=== PATIENT | male | born 1960 | race Caucasian/White ===

== ENCOUNTER → 2023-07-20 07:12 | Outpatient (REF) | payer BC, SELFPAY | LOC: HWRCS 07:12 | PROVIDERS: ATTENDING PHYSICIAN Internal Medicine Cardiovascular Disease; FAMILY PHYSICIAN Family Medicine | DX: R94.31 Abnormal electrocardiogram [ECG] [EKG] (principal); R06.09 Other forms of dyspnea | CPT/HCPCS: 93306 ==

== ENCOUNTER 2023-08-04 17:32 | Emergency (ER) | payer BC, SELFPAY ==
[2023-08-04 17:34] VITALS: BP 135/69
--- NOTE | 2023-08-04 18:43 | ED.GENMED ---
History of Present Illness
General
Chief Complaint: Skin Surface Trauma
Source: patient
Exam Limitations: none
Time Seen by Provider: 08/04/23 18:02
Nursing documentation reviewed up to this point in time: agreed with
Travel History
Have you had any contact with someone who has COVID-19?: No
Do you have any symptoms of coronavirus? Fever > 100 degrees, chills, cough, shortness of breath, sore throat, loss of taste or smell, muscle aches, or headache?: No
History of Present Illness
History of Present Illness:
63-year-old male with past medical history of previous colostomy secondary to Crohn's disease presenting to the emergency department today with concerns of a cut to his left arm that occurred just prior to arrival while working on a car with a piece
of metal. Unsure of his last tetanus shot was.
Past History
Past History
ED Past Medical History: Other
ED Past Surgical History: Bowel resection and Other
Social History
Tobacco: Non-smoker
Alcohol: None
Personal:
Living: with family
Review of Systems
Review of Systems
Allergies reviewed?: Yes
All Other Systems: ROS reviewed and negative except as documented in HPI and ROS
Phy Exam
Physical Exam
Physical Exam:
GENERAL: Alert , in no apparent distress
EYE: pupils equal and reactive
NECK: Supple, no significant adenopathy.
ENT: o/p clr, mmm.
CARDIAC: Regular rate and rhythm .
LUNGS: Clear breath sounds bilaterally, no acute respiratory distress, no wheezes/rales/rhonchi
ABDOMEN: Soft, without focal tenderness, no r/g, no cvat
NEUROLOGICAL: Alert and oriented, no focal neuro deficits
SKIN: Skin tear to left forearm 6 cm in total length semicircle in shape superficial warm and dry, skin intact.
MUSCULOSKELETAL: No edema, well perfused.
PSYCH: Normal and appropriate interaction.
Course
Vital Signs
Initial and Last Documented VS:
Initial Vital Signs
Temp Pulse Resp BP Pulse Ox
97.9 F 96 16 135/69 100
08/04/23 17:34 08/04/23 17:34 08/04/23 17:34 08/04/23 17:34 08/04/23 17:34
Last Documented Vital Signs
Temp Pulse Resp BP Pulse Ox
97.9 F 96 16 135/69 100
08/04/23 17:34 08/04/23 17:34 08/04/23 17:34 08/04/23 17:34 08/04/23 17:34
Procedures
Laceration Closure
Left forearm:
Status of Wound: clean
Size of Wound in cm: 6
Description of Wound Edges: other (Skin tear)
Preparation: cleaned with saline
Revision/Debridement: routine- no revision and irrigate-direct pressure
Wound exploration: explored to base- no FB and no tendon involvement
Type of Closure: single layer closure and other (6 Steri-Strips)
MDM/Problems Addressed
MDM/Problems Addressed:
63-year-old male presenting to the emergency department today with concerns of a skin tear occurring prior to arrival very clean in appearance no foreign body seen unsure of last tetanus shot was. Given an updated tetanus shot no specific risk
factors for infection. Otherwise closed with Steri-Strips return precautions given.
*Critical Care Note
Total Time (30-74mins, 75-104mins- exclusive of procedures): Not Applicable
ED Attending Note
-
Portions of this chart may have been created with voice recognition software.� Occasional wrong word or��sound alike� substitutions may have occurred due to the inherent limitations of voice recognition software.
Discharge Plan
Departure
Patient Disposition: Home (Routine Discharge)
Date of Disposition: 08/04/23
Time of Disposition: 18:45
Patient with high blood pressure during this ER visit?: No
Condition: Good
Covid-19: Not Applicable
Discharge Problem:
Skin tear of left upper extremity
Instructions: Wound Care ED
Prescriptions:
No Action
ciprofloxacin HCl 500 MG tablet
500 mg PO Q12
prednisone 2.5 MG tablet
7.5 mg PO DAILY
amoxicillin-pot clavulanate 1 TABLET tablet
1 tab PO Q12 Qty: 20 0RF
Referrals:
Cynthia Calix MD [Family Provider] -
Activity Restrictions/Additional Instructions:
You came to the emergency department today with concerns of a skin tear. This was closed with Steri-Strips. Please keep the area clean covered and return for any signs of worsening.
Interventions
Interventions:
*General Assessment Last Done: 08/04/23 17:34
*ED COVID-19 Vaccine History Last Done: 08/04/23 17:34
ED-Skin Assessment Last Done: 08/04/23 18:29
Discharge Date and Time
Print Language: [place] R[place]
[2023-08-04] MEDS: ADACEL 0.5 ML IM (19:03)
== END 2023-08-04 19:19 | disposition home or self-care (01) ==
LOC: EMR 17:32
PROVIDERS: EMERGENCY PHYSICIAN Emergency Medicine; FAMILY PHYSICIAN Family Medicine
DX: S41.112A Laceration without foreign body of left upper arm, initial encounter (principal); W26.8XXA Contact with other sharp object(s), not elsewhere classified, initial encounter; Y93.89 Activity, other specified; Y92.89 Other specified places as the place of occurrence of the external cause; Y99.0 Civilian activity done for income or pay; Z23 Encounter for immunization; K50.90 Crohn's disease, unspecified, without complications; K90.0 Celiac disease; K21.9 Gastro-esophageal reflux disease without esophagitis; D64.9 Anemia, unspecified; Z93.3 Colostomy status; Z98.0 Intestinal bypass and anastomosis status
CPT/HCPCS: 99282; 12002; 90471; 90715

== ENCOUNTER 2023-11-01 01:50 | Inpatient (IN) | payer BC, SELFPAY ==
[2023-10-31 20:28] VITALS: BP 130/63
[2023-10-31 20:51] LABS: Urine Albumin 2+ (Neg - Trace); Urine Bilirubin 1+ (Negative); Urine Character Bloody (Clear); Urine Color Red; Urine Glucose Negative (Negative); Urine Ketone Trace (Negative); Urine Leukocyte 1+ (Negative); Urine Nitrite Negative (Negative); Urine Occult Blood 4+ (Negative); Urine Urobilinogen Negative (Neg - 1+)
[2023-10-31 21:04] LABS: Blood Urea Nitrogen 22 mg/dl (9-20); Calcium 8.9 mg/dl (8.4-10.2); Carbon Dioxide 25 mmol/L (22-30); Chloride 103 mmol/L (98-107); Glucose 97 mg/dl (70-99); Potassium 4.3 mmol/L (3.5-5.1); Sodium 137 mmol/L (135-145); eGFR > 60.00
[2023-10-31 21:25] LABS: % Basophils 0.3 % (0-2); % Eosinophils 0.3 % (0-6); % Immature Granulocytes 0.7 % (0-0.5); % Lymphocytes 5.1 % (20.5-51.1); % Monocytes 5.3 % (1.7-9.3); % Neutrophils 88.3 % (42.2-75.2); Absolute Basophils 0.1 10^3/uL (0-0.2); Absolute Eosinophils 0.1 10^3/uL (0-0.7); Absolute Immature Granulocytes 0.1 10^3/uL (0-0.05); Absolute Lymphocytes 0.9 10^3/uL (1.2-3.4); Absolute Neutrophils 16.4 10^3/uL (1.4-6.5); Hemoglobin 7.7 g/dL (13.0-18.0); Mean Corp Hgb Conc. 28.5 g/dL (33.0-37.0); Mean Corpuscular Hgb 20.5 pg (27.0-31.0); Mean Platelet Volume 9.6 fL (7.4-10.4); Nucleated Red Blood Cells % 0 % (-); Platelet Count 684 10^3/uL (130-400); Red Blood Cell Count 3.75 10^6/uL (4.70-6.10); Red Cell Dist. Width 24.8 % (11.5-14.5); White Blood Cell Count 18.6 10^3/uL (4.8-10.8)
[2023-10-31 22:06] LABS: Urine Bacteria Few (Negative); Urine Red Blood Cell >100 /HPF (0-2); Urine White Cell 16-20 /HPF (0-5)
[2023-10-31 22:25] VITALS: BP 122/63; BMI 26.6
--- NOTE | 2023-10-31 22:40 | ED.GENMED ---
History of Present Illness
General
Chief Complaint: Male Genito-Urinary Symptoms
Source: patient and family
Exam Limitations: none
Time Seen by Provider: 10/31/23 22:25
Nursing documentation reviewed up to this point in time: agreed with
History of Present Illness
History of Present Illness:
63-year-old male history of Crohn's disease followed at [facility] status post multiple resections has an ileostomy, urinates normally, has normal bowel movements, recent COVID infection, has hematuria, urinary frequency, no trouble urinating chronic
back pain, thought was due to his Crohn's, no nausea or vomiting, 1 prior episode of hematuria, does not see a urologist, has chronic iron deficiency anemia gets iron infusions followed by hematology based on hemoglobin in the 8 range
Past History
Past History
ED Past Medical History: Other (Crohn's)
ED Past Surgical History: Bowel resection and Other
Social History
Tobacco: Non-smoker
Alcohol: None
Drug: None
Personal:
Living: with family
Employment: Retired
Review of Systems
Review of Systems
All Other Systems: Not applicable
Constitutional: Denies fever, fatigue or chills
EENT: Reports no symptoms
Respiratory: Reports no symptoms
Cardiac: Reports no symptoms
ABD/GI: Reports diarrhea (Chronic liquid stool was semisolid stool in the rectal); Denies abdominal pain or bloody stools
: Reports bleeding; Denies dysuria or difficulty voiding
Musculoskeletal: Reports back pain
Skin: Reports no symptoms
Neurological: Reports no symptoms
Phy Exam
Physical Exam
Physical Exam:
Physical Exam
General: Chronically ill-appearing male
Neck: Lips are slightly
Heart: Regular
Lungs: no acute respiratory distress.
Abdomen: Soft ileostomy with large amount of dark liquid
Neuro: alert and oriented. no focal neurological deficits
Skin: no rash
Psychiatric: well kept. interactive and cooperative
Extremities: no edema.
Course
Orders/Labs/Results
Orders:
Orders
10/31/23 20:37
Basic Metabolic Panel Urgent
Complete Blood Count/With Diff Urgent
Urinalysis Urgent
Date Specimen was Collected: 10/31/23
Time Specimen was Collected: 20:30
Urine Microscopic Urgent
Date Specimen was Collected: 10/31/23
Time Specimen was Collected: 20:30
Urine Culture Urgent
TANYA Source: U
Specimen Description:
Date Specimen was Collected: 10/31/23
Time Specimen was Collected: 20:30
Comment: ADD ON
10/31/23 22:36
Abdomen/Pelvis wo Contrast CT [CT Abd/pelvis Wo Iv Cont] Urgent
Comment:
Reason For Exam: hematuria
0.9% Sodium Chloride 1000 ml [Nss] 1,000 ml IV BOLUS
CefTRIAXone [Rocephin] 1,000 mg IV NOW STA
10/31/23 22:44
Add On- LAB Urgent
Tests Added?: urine culture
10/31/23 23:40
Sterile Water [Sterile Water For Injection] 10 ml .ROUTE .STK-MED ONE
Abnormal Lab Results
10/31/23
20:37
WBC 18.6 H 10^3/uL
(4.8-10.8)
RBC 3.75 L 10^6/uL
(4.70-6.10)
Hgb 7.7 L g/dL
(13.0-18.0)
Hct 27.0 L %
(39.0-52.0)
MCV 72.0 L fL
(80.0-94.0)
MCH 20.5 L pg
(27.0-31.0)
MCHC 28.5 L g/dL
(33.0-37.0)
RDW 24.8 H %
(11.5-14.5)
Plt Count 684 H 10^3/uL
(130-400)
Abs Immat Gran (auto) 0.1 H 10^3/uL
(0-0.05)
Absolute Neuts (auto) 16.4 H 10^3/uL
(1.4-6.5)
Absolute Lymphs (auto) 0.9 L 10^3/uL
(1.2-3.4)
Absolute Monos (auto) 1.0 H 10^3/uL
(0.1-0.6)
Immature Gran % 0.7 H %
(0-0.5)
Neutrophils % 88.3 H %
(42.2-75.2)
Lymphocytes % 5.1 L %
(20.5-51.1)
BUN 22 H mg/dl
(9-20)
Urine Ketones Trace A
(Negative)
Urine Occult Blood 4+ A
(Negative)
Urine Bilirubin 1+ A
(Negative)
Ur Leukocyte Esterase 1+ A
(Negative)
Urine RBC >100 A /HPF
(0-2)
Urine WBC 16-20 A /HPF
(0-5)
Urine Bacteria Few A
(Negative)
Urine Albumin 2+ A
(Neg - Trace)
10/31/23 20:37
10/31/23 20:37
Vital Signs
Initial and Last Documented VS:
Initial Vital Signs
Temp Pulse Resp BP Pulse Ox
97.8 F 84 24 130/63 100
10/31/23 20:28 10/31/23 20:28 10/31/23 20:28 10/31/23 20:28 10/31/23 20:28
Last Documented Vital Signs
Temp Pulse Resp BP Pulse Ox
98.7 F 81 16 122/63 100
10/31/23 22:25 10/31/23 22:25 10/31/23 22:25 10/31/23 22:25 10/31/23 22:25
MDM/Problems Addressed
Differential Diagnosis Includes:
UTI stone malignancy dehydration
MDM/Problems Addressed:
Hematuria
Chronic conditions affecting care:
Crohn's chronic anemia
Chronic conditions affecting care: Previous abdomnial surgery
Acute Exacerbation and/or Progression of Chronic Illness:
Crohn's chronic anemia
Acute Exacerbation and/or Progression of Chronic Illness: Previous abdomnial surgery
*Radiology
Radiology exam reviewed: radiology read reviewed
*Pulse Oximetry
Patient hypoxic: no
*Critical Care Note
Total Time (30-74mins, 75-104mins- exclusive of procedures): Not Applicable
Update Note
Update Note:
Update patient chronically appearing but nontoxic hemoglobin close to his normal range white count is up urinalysis noted culture pending to start antibiotics check CT scan to rule out obstruction,
CT report noted labs noted reviewed with patient and spouse, he has had chronic leukocytosis in the 13 range chronic anemia never known to have ureteral stones before, concerned that he may not pass these and could become septic although I do not
think he has any signs of sepsis at this point no fevers no rigors no nausea or vomiting really no pain will start on antibiotics and fluids follow closely have asked hospitalist to admit him, and urology to consult in the morning
ED Attending Note
-
Portions of this chart may have been created with voice recognition software.� Occasional wrong word or��sound alike� substitutions may have occurred due to the inherent limitations of voice recognition software.
Discharge Plan
Departure
Patient Disposition: Admit
Date of Disposition: 11/01/23
Time of Disposition: 00:21
Presentation/result/management discussed w/ accepting MD/DO: Hospitalist
Patient with high blood pressure during this ER visit?: No
Condition: Fair
Discharge Problem:
Hematuria, Crohn's disease, Calculus, ureteral
Prescriptions:
No Action
prednisone 5 mg Tablet
10 mg PO DAILY
ferrous sulfate 325 mg (65 mg iron) Tablet
325 mg PO BID
Stelara 45 mg/0.5 mL Syringe
45 mg SC Q4W
Patient Comments:
10/31/23: Patient states that he is overdue for his next dose.
Iron Infusion
1 dose Q6W
Referrals:
Cynthia Calix MD [Family Provider] -
Interventions
Interventions:
*Risk Screen - Suicide Last Done: 10/31/23 20:28
*General Assessment Last Done: 10/31/23 22:25
*Neglect/Abuse Screening Last Done: 10/31/23 20:28
*ED COVID-19 Vaccine History Last Done: 10/31/23 22:25
ED-Male Genitourinary Assessment Last Done: 10/31/23 23:55
Discharge Date and Time
Print Language: MACEDONIAN
[2023-10-31 22:48] LABS: Anisocytosis 3+; Hypochromasia 2+; Macrocytosis 2+; Normal RBC Morphology No; Ovalocytes 1+; Stomatocytes 2+
[2023-11-01] VITALS (13 sets, daily range): BP systolic 104–134; BP diastolic 54–72; BMI 20.9
[2023-11-01] MEDS: ROCEPHIN 1000 MG IV (00:18)
[2023-11-01] MEDS: NSS 1000 IV ×2 (00:32→04:36)
--- NOTE | 2023-11-01 01:31 | HPS.HSE ---
Family Physician
-
Family Physician: Cynthia Calix
Chief Complaint
-
Bloody urine
History of Present Illness
Patient is a 63y M with PMH significant for severe Crohn's disease who presents to ED complaining of blood in his urine. Patient states that he first noted bloody urine today. Urine yesterday was normal appearing. Patient states that he has
had L sided back pain / flank for the past 1-2 weeks. He notes that he has frequent back pain as part of his Crohn's disease and he did not think much of this discomfort. He denies any fevers / chills. No dysuria. No prior h/o kidney stones.
Patient has severe Crohn's disease with active fistulas. He is s/p permanent ileostomy.
Patient denies any new / increased symptoms in regards to his Crohn's disease. He is followed for this at [facility].
Medical History
Past Medical History
Past Medical History: Reports Other
Additional Past Medical History:
Crohn's Disease with Active Fistulas
Chronic Iron Deficiency Anemia
Past Surgical History: Reports Other
Additional Past Surgical History:
Bowel Resection with Ileostomy / Reversal
Bowel Resection with Permanent Ileostomy
Social History
Tobacco: Non-smoker
Alcohol: None
Drug: None
Personal:
Living: With Family
Family History
Family History: Other (Uncle: Colitis)
Allergies / Home Medications
Allergies reflects when Allergies were last updated in [employer].
Home Medications with original date entered in [employer]
Allergy/Medication List:
Allergies
Allergy/AdvReac Type Severity Reaction Status Date / Time
metronidazole Allergy Unknown Verified 10/31/23 20:29
Proton Pump Inhibitors Allergy Rash Verified 10/31/23 20:29
Home Medications
Iron Infusion 1 dose Q6W 10/31/23
ferrous sulfate 325 mg (65 mg iron) tablet 325 mg PO BID 10/31/23
prednisone 5 mg tablet 10 mg PO DAILY 10/31/23
ustekinumab 45 mg/0.5 mL subcutaneous syringe (Stelara) 45 mg SC Q4W 10/31/23
Review of Systems
-
History Source: Patient
A 12 point ROS was completed and negative except as noted: Yes
Constitutional: Denies Fever, Fatigue or Chills
Respiratory: Denies Cough or Trouble Breathing
Cardiac: Denies Chest Pain or Palpitations
Abdomen/GI: Reports Black Stools (chronically); Denies Abdominal Pain, Nausea or Vomiting
: Reports Flank Pain and Bleeding; Denies Dysuria or Frequency
Neurological: Denies Dizzy or Headache
Psych: Denies Depression or Anxiety
Physical Exam
Vital Signs
Vital Signs
Temp Pulse Resp BP Pulse Ox
98.7 F 80 16 110/59 100
10/31/23 22:25 11/01/23 00:41 10/31/23 22:25 11/01/23 00:41 11/01/23 00:41
Physical Exam
General: Other (Thin, chronically ill-appearing 63y M in no acute distress.)
HEENT: Moist mucous membranes and PERRLA
Respiratory: Clear; No Wheezes, Rales or Rhonchi
Cardiac: S1/S2 and Regular Rhythm; No Murmur
GI: Other (Large collection dressing / ostomy device over entire anterior abdomen with multiple fistulous areas and leakage of black, liquid stools. Mild abdominal wall induration at edges without tenderness / erythema.)
Genito-urinary: No costovertebral tender
Musculoskeletal: No Clubbing, No Cyanosis and No Edema
Neuro: AO x 3
Laboratory Results
-
10/31/23 20:37
10/31/23 20:37
Impression/Plan
-
A/P: Patient is a 63y M with PMH significant for Crohn's disease who presents to ED for evaluation of bloody urine.
Left Ureterolithiasis
- Admit for further evaluation and treatment.
- Tamsulosin, strain urine, IVFs, etc.
- Urology evaluation for additional recommendations / possible ureteroscopy.
- Empiric abx pending culture data.
- Multiple stones appreciated on CT. Patient denies any prior h/o kidney stones.
Crohn's Disease with Active Fistulas
- Multiple areas of abdominal wall fistulas on exam / CT.
- Abdominal wall induration concerning for associated cellulitis.
- Continue current med regimen for Crohn's (prednisone. Stelara q4 weeks).
- IV Zosyn for now for possible cellulitis / urinary infection / etc.
- Wound / ostomy consult for complicated ostomy / abdominal dressing.
Chronic Iron Deficiency / Blood Loss Anemia secondary to the above
- Hgb 7.7 at present without clear baseline.
- Patient is on chronic iron supplementation for chronic GI blood losses.
- Follow H&H and consider transfusion if needed.
- Patient declined to complete consent at present and would prefer to do so later only if transfusion is necessary.
- Continue iron supplementation.
Leukocytosis
Thrombocytosis
- At least partially reactive given associated thrombocytosis.
- Likely also due to chronic blood losses / marrow activity.
- Concern for active infection of the abdominal wall and / or tract.
- IV abx as noted above.
- Follow for changes in cell counts.
DVT Prophylaxis: SCDs
Code Status: Full
[2023-11-01] MEDS: ZOSYN 50 IV ×2 (04:36→09:55)
--- NOTE | 2023-11-01 05:04 | PTCARENOTE ---
Pt arrived to [facility] from ED at 02:55 on a stretcher and walked into the room to the bed. Full head to toe assessment completed. Ostomy present with multiple fistulas. Pt on RA and lying comfortably. Pt states they are pain free. Call carrero within
reach and bed locked in lowest position. Pt oriented to room.
[2023-11-01 06:27] LABS: Hematocrit 23.2 % (39.0-52.0); Hemoglobin 6.5 g/dL (13.0-18.0); Mean Corpuscular Hgb 20.2 pg (27.0-31.0); Platelet Count 514 10^3/uL (130-400); Red Blood Cell Count 3.22 10^6/uL (4.70-6.10); Red Cell Dist. Width 24.5 % (11.5-14.5); White Blood Cell Count 9.4 10^3/uL (4.8-10.8)
[2023-11-01 06:47] LABS: Blood Urea Nitrogen 19 mg/dl (9-20); Calcium 8.1 mg/dl (8.4-10.2); Carbon Dioxide 25 mmol/L (22-30); Chloride 106 mmol/L (98-107); Estimated Creatinine Clearance 53 ml/min; Glucose 73 mg/dl (70-99); Potassium 4.5 mmol/L (3.5-5.1); Sodium 139 mmol/L (135-145); eGFR > 60.00
[2023-11-01] MEDS: FLOMAX 0.4 MG PO (07:54)
[2023-11-01] MEDS: DELTASONE 10 MG PO (07:54)
[2023-11-01] MEDS: FEOSOL 325 MG PO (07:55)
[2023-11-01 08:11] LABS: Reticulocyte Count 6.2 % (0.4-2.8)
[2023-11-01 08:15] LABS: Iron 39 ug/dl (49-181); LDH 138 U/L (120-246)
[2023-11-01 08:26] LABS: Percent Saturation 20 % (20-50); Total Iron Binding Capacity 186 ug/dl (261-462)
[2023-11-01 09:32] LABS: Folate 9.2 ng/ml (2.76-20); Vitamin B12 648 pg/ml (239-931)
--- NOTE | 2023-11-01 10:02 | W.PN.HOSP.TC ---
Today's Communication/Plan
-
transfuse 2 units pRBC
apprec urology
d/c after blood
Assessment / Plan
Assessment / Plan
pt is a 63 year old male
Left Ureterolithiasis--hematuria resolved--apprec urology--f/u in office in 2 weeks--stop IVF--Tamsulosin, strain urine--Empiric abx pending culture data--Multiple stones appreciated on CT. Patient denies any prior h/o kidney stones.
Crohn's Disease with Active Fistulas--chronic--possible abdominal wall cellulitis--on zosyn--Continue current med regimen for Crohn's (prednisone. Stelara q4 weeks)--Wound/ostomy consult for complicated ostomy / abdominal dressing.
Chronic Iron Deficiency/acute Blood Loss Anemia from hematuria--receives iron as outpt--anemia studies do not show iron deficiency--pt agreeable to blood now--will transfuse 2 units pRBC--stop IVF
Leukocytosis/Thrombocytosis--At least partially reactive given associated thrombocytosis--Likely also due to chronic blood losses/marrow activity.
DVT Prophylaxis: SCDs
Code Status: Full
anticipate d/c home after blood
Anticipated Discharge: Today
Subjective/Interval History
-
Date of Service: November 01, 2023
pt now agreeable to consent for blood
Objective Data
-
Labs:
Laboratory Results
11/01/23
04:48
WBC 9.4
Hgb 6.5 L*
Hct 23.2 L
Plt Count 514 H D
Sodium 139
Potassium 4.5
Chloride 106
Carbon Dioxide 25
BUN 19
Creatinine 1.2
Glucose 73
Calcium 8.1 L
Vital Signs:
max temp for 24 hours
10/31/23
22:25
Temp 98.7 F
Vital Signs
Temp Pulse Resp BP Pulse Ox
98.4 F 79 14 126/64 100
11/01/23 07:00 11/01/23 07:00 11/01/23 07:00 11/01/23 07:00 11/01/23 07:00
I&O
10/31/23 11/01/23 11/02/23
06:59 06:59 06:59
Output Total 200 / 200
Balance -200 / -200
Review of Systems
-
All other systems: Reviewed and negative
Physical Exam
-
General: Appears Chronically Ill
HEENT: Normocephalic and Atraumatic; Negative Oxygen
Respiratory: Clear to Auscultation; Negative Wheezes or Rhonchi
Cardiac: Regular Rhythm and S1/S2; Negative Murmur
GI: Soft, Nontender, Nondistended, Normal Bowel Sounds and Ostomy (covers whole abdomen)
Musculoskeletal: No Clubbing, No Cyanosis and No Edema
Skin: Warm
Neuro: Awake
--- NOTE | 2023-11-01 10:11 | CM ---
Patient seen at bedside with physician. Patient states that he lives with his family in a 2 story home. Patient PCP is Dr. Bragg and he uses the [facility] on [address] in [place]. 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
Patient plan is for discharge home with no needs. Patient has no DME at home. Patient recently with COVID now testing negative per patient. Patient for transfusion today and then plans for discharge home. Patient states is on her way here
shortly. CM will continue to follow for discharge planning needs.
Plan; home with no needs; follow up with outpatient physician Dr. Welch
--- NOTE | 2023-11-01 10:29 | W.PN.URO.CBU ---
Today's Communication / Plan
-
Discussed the CT scan findings at length with the patient who has never had a kidney stone event previously
In the absence of fever, ongoing hematuria, renal colic, nausea or DELLA there is no indication for urgent intervention and patient is anxious to go home after blood transfusion for an outpatient trial of stone passage
He is aware that the presence of multiple left ureteral stones decreases the likelihood of spontaneous stone passage
He will follow with me in the office in the next week
Assessment / Plan
-
Left ureteral calculi with associated mild to moderate left hydroureteronephrosis
Left renal calculi
Transient gross hematuria: resolved
Chronic anemia: Hgb < 7.0 this AM
Longstanding complicated history of Crohn's disease with draining fistulae
Diagnosis
-
Date of Service: November 01, 2023
-
Patient Diagnosis:
Longstanding history of complicated Crohn's disease with permanent ileostomy and chronic draining small bowel fistulae managed with abdominal collection bag
Patient presented to the ER 10/31/23 due to the onset of gross painless hematuria: which has subsequently resolved
CT scan revealed multiple 5mm and smaller left distal ureteral stones with mild to moderate hydronephrosis and a large stone burden in the left kidney. No clear masses noted in the upper or lower tracts. No right upper tract stones
He had transient LLQ pain, which has resolved
---
Chronic anemia: Hgb < 7.0 this AM
Subjective
-
No flank pain
No nausea
No dysuria or gross hematuria
Objective
-
Vital Signs
Temp Pulse Resp BP Pulse Ox
98.4 F 79 14 126/64 100
11/01/23 07:00 11/01/23 07:00 11/01/23 07:00 11/01/23 07:00 11/01/23 07:00
Intake and Output
10/31/23 11/01/23 11/02/23
06:59 06:59 06:59
Output Total 200 / 200
Balance -200 / -200
Output:
Urine, Voided 200 / 200
Laboratory Results
11/01/23 04:48
11/01/23 04:48
CT scan images from 10/31/23 personally reviewed
Review of Systems
-
Constitutional: No Symptoms
Respiratory: No Symptoms
Cardiac: No Symptoms
Abdomen/GI: No Symptoms
: No Symptoms
Neurological: No Symptoms
Physical Exam
-
General - thin, no acute distress
Abdomen - soft, non-tender, abdominal collection bag in place, no left CVAT
Counseling
-
Cleared for outpatient trial of stone passage after blood transfusion
Discussed with Hospitalist
--- NOTE | 2023-11-01 11:25 | WOUNDNOTE ---
AASHISH RN NOTE: Patient admitted with hematuria, PMH of Crohn's disease, 2 bowel resections at [facility] with ileostomy x 16 yrs. Own supplies at bedside and independent with care. Asking for any recommendations in management, follows with an Ostomy
nurse as outpatient. Patient has multiple fistulas scattered over abdomen, draining bilious drainage. Ileostomy stoma pink, small tiny bud for liquid stool. Kaleigh skin on abdomen is in good shape despite leakage and having to change pouch daily.
Patient known to service, seen in 2012 by Peggy for same fistula management. Patient continues to manage on own with large [facility] fistula investigations manager, paste and clip. Using Tube top or girdle as extra support over appliance. Has appliance pre cut to
fit ileostomy and fistulas, watched patient change appliance and assisted as needed. Noticed some of the precut openings not over the right spot, willing to assist patient in measuring next appliance for better fit, if still here tomorrow. Sacrum is
intact and patient reports no other fistulas in rectal area. Recommend patient follow up with current ostomy nurse.
--- NOTE | 2023-11-01 16:19 | W.DCSUMMARY ---
Discharge Summary
Discharge Data
Date of Admission: 11/01/23
Date of Discharge: 11/01/23
-
Pending Results: Yes
Additional Pending Results:
urine culture
Hospital Course
Primary care physician : Cynthia Calix
Principal Discharge diagnosis : Left ureteral lithiasis with hematuria
Chronic Discharge diagnosis : Crohn's disease with active fistulas, chronic iron deficiency anemia due to acute blood loss anemia from hematuria, leukocytosis/thrombocytosis
Hospital Course : Patient is a 63-year-old male with severe Crohn's disease and known fistulas who presented to the emergency department complaining of blood in his urine. He noted bloody urine on the day of admission. He was complaining of
left-sided back and flank pain for the past 1 to 2 weeks. He did not really attribute this to anything as he has chronic pain from his Crohn's disease. He denied fevers, chills, dysuria. Patient was found to have a hemoglobin of 7.7 with multiple
renal stones on CAT scan. Patient was admitted.
Problem #1: Left ureteral lithiasis with hematuria. Patient was seen in consultation by urology. IV fluids were continued. Hematuria has resolved. Recommendations are for him to follow-up with urology as an outpatient for definitive stone
management. Urine culture was checked and is pending at this time. Patient was started on empiric Zosyn prior to discharge and converted to Augmentin to finish out a 5-day course. Urine culture results are pending at this time. He will follow-up
with Dr. Welch in the office.
Problem #2: All other medical issues. These include Crohn's disease with active fistulas, chronic iron deficiency anemia due to acute blood loss anemia from hematuria, leukocytosis/thrombocytosis. These medical issues were stable during his
hospitalization. Medications were continued as able. In regards to the acute blood loss anemia. With IV fluids his hemoglobin dropped from 7.7 on admission to 6.5. He is finally agreeable to blood transfusion which he declined to sign the
consent on admission. He was transfused 2 units of packed red blood cells. Since there was no further hematuria and no concern for any other bleeding. Posttransfusion hemoglobin was not checked. Patient also receives IV iron and was not iron
deficient. He receives these every 6 weeks. He just received his iron this past week.
Patient is stable for discharge home at this time. If there are any questions regarding this dictation or his hospital stay, please not hesitate to call. Our office number is [phone].
Important imaging findings :
CT SCAN ABDOMEN/PELVIS IMPRESSION:
Multiple calculi within the distal left ureter, and I count 8 separate calculi, the largest measuring 5 mm. Mild to moderate dilation more proximal left ureter, left renal pelvis, and calyces. There are also multiple calculi within the calyces of
the mid to lower left kidney.
No evidence for right sided urinary tract calculi.
Complex anatomy of the bowel with suggestion of fistulous tracts extending from the small bowel into the anterior abdominal wall. If further evaluation of bowel anatomy is desired, examination with oral contrast may be helpful.
No evidence for free intraperitoneal air.
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 Consider further evaluation with MRI of the pelvis without and with contrast. Ultimately, biopsy could be considered as well.
Small loculated pleural effusion in the posterolateral right lower hemithorax.
Discharge Plan
-
Patient Disposition: Home (Routine Discharge)
Discharge Diagnosis/Procedures: Left ureterolithiasis with hematuria, Crohn's disease with active fistulas, chronic iron deficiency anemia with acute blood loss anemia from hematuria, leukocytosis/thrombocytosis
Condition: Good
Diet: Other diet
Additional Diets: Crohn's diet that he uses at home
Activity: As tolerated
Driving Restrictions: As prior to admission
Bathing Restrictions: as prior to admission
Referrals:
Cynthia Calix MD [Family Provider] - in less than 1 week
Canelo Welch MD [Active] - in two weeks
Prescriptions:
New
tamsulosin 0.4 mg Capsule
0.4 mg PO DAILY Qty: 30 0RF
amoxicillin-pot clavulanate 500-125 mg tablet
1 tab PO BID Qty: 10 0RF
Continued
prednisone 5 mg Tablet
10 mg PO DAILY Qty: 0 0RF
ferrous sulfate 325 mg (65 mg iron) Tablet
325 mg PO BID Qty: 0 0RF
Stelara 45 mg/0.5 mL Syringe
45 mg SC Q4W Qty: 0 0RF
Patient Comments:
10/31/23: Patient states that he is overdue for his next dose.
Changed
Iron Infusion
1 dose IV Q6W Qty: 0 0RF
Discharge Orders:
Discharge Patient (As Directed); Ordered 11/01/23
Ordered By: Lexie Juarez
Discharge Date and Time
Discharge Date/Time: 11/01/23 16:05
Print Language: MOSOTHO
== END 2023-11-01 16:05 | disposition home or self-care (01) | DRG 694 ==
LOC: 2 SOUTH 01:50
PROVIDERS: Emergency Medicine; ADMITTING PHYSICIAN Hospitalist; ATTENDING PHYSICIAN Internal Medicine; CONSULT PHYSICIAN Specialist; EMERGENCY PHYSICIAN Emergency Medicine; FAMILY PHYSICIAN Family Medicine
PROC: 30233N1 Transfusion of Nonautologous Red Blood Cells into Peripheral Vein, Percutaneous Approach (ICD-10-PCS; 2023-11-01)
DX: N20.2 Calculus of kidney with calculus of ureter (principal); J90 Pleural effusion, not elsewhere classified; D62 Acute posthemorrhagic anemia; K50.913 Crohn's disease, unspecified, with fistula; D72.829 Elevated white blood cell count, unspecified; D75.839 Thrombocytosis, unspecified; R31.9 Hematuria, unspecified; R35.0 Frequency of micturition; Z79.52 Long term (current) use of systemic steroids; Z79.899 Other long term (current) drug therapy; Z93.2 Ileostomy status; Z90.49 Acquired absence of other specified parts of digestive tract; Z86.16 Personal history of COVID-19
CPT/HCPCS: 74176; 80048; 81003; 81015; 82607; 82728; 82746; 83540; 83550; 83615; 85025; 85027; 85045; 86850; 86900; 86901; 86920; 87086; 96361; 96374; 99285; P9016

== ENCOUNTER → 2024-03-16 07:43 | Outpatient (REF) | payer BC, SELFPAY | LOC: RAD 07:43 | PROVIDERS: ATTENDING PHYSICIAN Internal Medicine Gastroenterology; FAMILY PHYSICIAN Family Medicine; REFERRING PHYSICIAN Specialist | DX: K50.913 Crohn's disease, unspecified, with fistula (principal) | CPT/HCPCS: 74177; Q9967 ==

== ENCOUNTER 2024-05-24 20:22 | Inpatient (IN) | payer BC, SELFPAY ==
[2024-05-24 17:51] VITALS: BP 122/72
[2024-05-24 18:00] VITALS: BP 98/64
[2024-05-24 18:03] VITALS: BP 98/64; BMI 17.7
[2024-05-24] MEDS: NSS 1000 IV ×2 (18:09→21:30)
[2024-05-24 18:14] LABS: Hematocrit 34.5 % (39.0-52.0); Hemoglobin 9.6 g/dL (13.0-18.0); Mean Corp Hgb Conc. 27.8 g/dL (33.0-37.0); Mean Corpuscular Hgb 22.7 pg (27.0-31.0); Mean Corpuscular Volume 81.8 fL (80.0-94.0); Red Blood Cell Count 4.22 10^6/uL (4.70-6.10); Red Cell Dist. Width 22.6 % (11.5-14.5); White Blood Cell Count 20.3 10^3/uL (4.8-10.8)
[2024-05-24 18:22] LABS: ALT (SGPT) 24 U/L (0-50); AST (SGOT) 22 U/L (17-59); Alkaline Phosphatase 89 U/L (38-126); Blood Urea Nitrogen 30 mg/dl (9-20); Calcium 9.3 mg/dl (8.4-10.2); Carbon Dioxide 16 mmol/L (22-30); Chloride 100 mmol/L (98-107); Estimated Creatinine Clearance 16 ml/min; Glucose 125 mg/dl (70-99); Potassium 5.4 mmol/L (3.5-5.1); Sodium 133 mmol/L (135-145); Total Bilirubin 0.7 mg/dl (0.2-1.3); Total Protein 7.4 g/dl (6.3-8.2); eGFR 19.47
[2024-05-24 18:40] LABS: % Basophils 0.3 % (0-2); % Immature Granulocytes 0.7 % (0-0.5); % Lymphocytes 1.3 % (20.5-51.1); % Monocytes 2.1 % (1.7-9.3); % Neutrophils 95.6 % (42.2-75.2); Absolute Basophils 0.1 10^3/uL (0-0.2); Absolute Immature Granulocytes 0.2 10^3/uL (0-0.05); Absolute Lymphocytes 0.3 10^3/uL (1.2-3.4); Absolute Monocytes 0.4 10^3/uL (0.1-0.6); Absolute Neutrophils 19.4 10^3/uL (1.4-6.5); Mean Platelet Volume 9.7 fL (7.4-10.4); Nucleated Red Blood Cells % 0 % (-); Platelet Count 732 10^3/uL (130-400)
[2024-05-24 18:41] LABS: Anisocytosis 1+; Normal RBC Morphology No
[2024-05-24 18:42] LABS: Hypochromasia 2+
--- NOTE | 2024-05-24 18:46 | ED.GENMED ---
History of Present Illness
General
Chief Complaint: Abdominal Symptoms
Source: patient
Time Seen by Provider: 05/24/24 18:31
History of Present Illness
History of Present Illness:
This patient is a 64-year-old male with an extremely complicated history of Crohn's disease complicated by colostomy, fistulas, etc. Who presents emergency department because he thinks he is very dehydrated. He describes being 'blocked' last night
associated with vomiting. However, the obstruction resolved which she describes as 'it blows through', and he is now having very loose output from the ostomy without blood or black output. However, despite p.o. intake at home, he thinks he is very
dehydrated. He denies abdominal pain but describes 'bad leg cramps' which are very typical of when he becomes dehydrated. He denies nausea or vomiting today, fever, chills, abdominal pain, chest pain, shortness of breath, or other complaints
Past History
Past History
ED Past Medical History: Other (Crohn's)
ED Past Surgical History: Bowel resection and Other
Social History
Tobacco: Non-smoker
Alcohol: None
Drug: None
Personal:
Living: with family
Employment: Retired
Phy Exam
Physical Exam
Physical Exam:
GENERAL: Alert , in no apparent distress, thin
EYE: pupils equal and reactive, conjunctive a slightly pale
NECK: Supple, no significant adenopathy.
ENT: o/p clr, mm dry
CARDIAC: Regular rate and rhythm .
LUNGS: Clear breath sounds bilaterally, no acute respiratory distress, no wheezes/rales/rhonchi
ABDOMEN: Soft, colostomy noted with very loose output without blood, no tenderness
NEUROLOGICAL: Alert and oriented, no focal neuro deficits
SKIN: Warm and dry, skin intact.
MUSCULOSKELETAL: No edema, well perfused.
PSYCH: Normal and appropriate interaction.
Course
Orders/Labs/Results
Orders:
Orders
05/24/24 17:53
EKG [Electrocardiogram (*1)] Urgent
Reason for Study: Bradycardia / Tachycardia
05/24/24 17:54
EKG- Treatment ONCE
05/24/24 17:57
Complete Blood Count/With Diff Urgent
Comprehensive Metabolic Panel Urgent
05/24/24 18:03
0.9% Sodium Chloride 1000 ml [Nss] 1,000 ml IV BOLUS
05/24/24 19:21
0.9% Sodium Chloride 500 ml [Nss] 500 ml IV BOLUS
05/24/24 19:42
CT Abd/pel Without Iv Or Oral Urgent
Comment:
Reason For Exam: DELLA, Anuria
05/24/24 19:55
Admit/Transfer Patient As Directed
Co-Sign Provider:
Level of Care: Inpatient admission
Assign to:: Medical/Surgical
Physician / Group: [facility]
Diagnosis: DELLA, Severe Crohn's Disease / Diarrhea
Reason for Hospitalization: DELLA, Severe Crohn's Disease / Diarrhea
Expected length of stay greater than two midnights?: Yes
ELOS- Estimated Length of Stay in days: 3
I certify the patient meets the requirements for IP care: Yes
PRN Pain Medication Management As Directed
May give lesser potent ordered pain med per pt: Yes
preference::
Protocol:: Medication orders for pain may be administered in a
manner that supports deferring to patient preference
when the pt is:
- Requesting an ordered lesser potent pain medication.
Least to most potent pain medications are defined
as: acetaminophen < NSAID < tramadol < opioids
(morphine, oxycodone, hydromorphone).
- Requesting a lesser dose of the same medication IF
ORDERED.
- Requesting a less intrusive route of administration
if both routes are prescribed by the provider (PO <
IV).
05/24/24 19:56
Code Status As Directed
Resuscitation Status: Full Code
05/24/24 20:51
0.9% Sodium Chloride 1000 ml [Nss] 1,000 ml IV 200 mls/hr
Acetaminophen [Tylenol] 650 mg PO Q4HPRN PRN
Ferrous Sulfate [Feosol] 325 mg PO BID
Ondansetron Injectable [Zofran] 4 mg IV Q6HPRN PRN
05/24/24 20:51
WOUND/OSTOMY CONSULT Routine
Reason for Consult: Complex ostomy care / severe fistulous Crohn's
Activity As Directed
Activity Level: Ambulate
With Assistance
I/O [Intake/ Output] As Directed
Frequency: Per unit guidelines
Orthostatic Vital Signs As Directed
Orthostatic VS Frequency: BID
Pneumatic Compression Sleeves As Directed
Type: Knee high
Vital Signs As Directed
Frequency: Per unit guidelines
Oxygen Therapy [O2 Therapy] [RESP] Routine
Titrate/Wean O2 to maintain O2 sat greater than (%): 94
DX Deep Vein Thrombosis Video Routine
05/24/24 21:46
STOOL [C difficile Antigen & Toxins] Urgent
TANYA Source: Feces/Stool
Specimen Description:
Date Specimen was Collected: 05/24/24
Time Specimen was Collected: 21:44
Stool Culture Urgent
TANYA Source: Feces/Stool
Specimen Description:
Date Specimen was Collected: 05/24/24
Time Specimen was Collected: 21:45
05/25/24 05:53
Basic Metabolic Panel IN AM
Complete Blood Count/No Diff IN AM
05/25/24 08:00
Prednisone [Deltasone] 10 mg PO DAILY
Abnormal Lab Results
05/24/24
17:57
WBC 20.3 H 10^3/uL
(4.8-10.8)
RBC 4.22 L 10^6/uL
(4.70-6.10)
Hgb 9.6 L g/dL
(13.0-18.0)
Hct 34.5 L %
(39.0-52.0)
MCH 22.7 L pg
(27.0-31.0)
MCHC 27.8 L g/dL
(33.0-37.0)
RDW 22.6 H %
(11.5-14.5)
Plt Count 732 H 10^3/uL
(130-400)
Abs Immat Gran (auto) 0.2 H 10^3/uL
(0-0.05)
Absolute Neuts (auto) 19.4 H 10^3/uL
(1.4-6.5)
Absolute Lymphs (auto) 0.3 L 10^3/uL
(1.2-3.4)
Immature Gran % 0.7 H %
(0-0.5)
Neutrophils % 95.6 H %
(42.2-75.2)
Lymphocytes % 1.3 L %
(20.5-51.1)
Sodium 133 L mmol/L
(135-145)
Potassium 5.4 H mmol/L
(3.5-5.1)
Carbon Dioxide 16 L mmol/L
(22-30)
BUN 30 H mg/dl
(9-20)
Creatinine 3.4 H mg/dL
(0.7-1.3)
Glucose 125 H mg/dl
(70-99)
05/24/24 17:57
05/24/24 17:57
Vital Signs
Initial and Last Documented VS:
Initial Vital Signs
BP
122/72
05/24/24 17:51
Last Documented Vital Signs
Temp Pulse Resp BP Pulse Ox
98.3 F 74 16 106/72 100
05/26/24 12:15 03/22/25 12:15 05/26/24 12:15 05/26/24 12:15 05/26/24 12:15
*Critical Care Note
Total Time (30-74mins, 75-104mins- exclusive of procedures): Not Applicable
Update Note
Update Note:
Patient presents to the Emergency Department with ___loose colostomy output with leg cramps
Number and Complexity of Problems Addressed at the Encounter
� Chronic conditions affecting care:
� Acute Exacerbation and/or Progression of Chronic Illness:
� Differential Diagnosis includes: But not limited to electrolyte abnormality, dehydration, exacerbation of Crohn's, etc. etc.
Amount and/or Complexity of Data to be Reviewed and Analyzed
� I performed an independent evaluation of and my interpretation is:
EKG:
CT:
Xrays:
Laboratory Studies: Leukocytosis considered baseline, likely attributed to chronic prednisone use, new renal insufficiency suspect related to dehydration as his patient's low bicarb etc. Patient has a history of anemia, may
reflect hemoconcentration today
Other:
� Review of other/old records reveals:
� Clinical information was obtained by an independent historian:
� Prescriptions/Medications Considered but not given:
� Further testing considered but not performed:
Risk of Complications and/or Morbidity or Mortality of Patient Management
� Social determinants of health affecting care:
� Discussion with other providers (PCP, Hospitalists, Consultants, etc):
� Escalation of care including admission/observation vs risk of discharge considered: 7:23 PM patient overall nontoxic, I printed out his labs for him so that he is aware. Case discussed with hospitalist for admission continued
IV fluids, repeat labs, further monitoring. Patient no longer having vomiting, is having ostomy output, I think a continued suspected obstruction is highly unlikely.
ED Attending Note
-
Portions of this chart may have been created with voice recognition software.� Occasional wrong word or��sound alike� substitutions may have occurred due to the inherent limitations of voice recognition software.
Discharge Plan
Departure
Patient Disposition: Admit
Date of Disposition: 05/24/24
Time of Disposition: 19:21
Admit to: Telemetry
Presentation/result/management discussed w/ accepting MD/DO: Hospitalist
Condition: Fair
Discharge Problem:
Dehydration
Interventions
Interventions:
*Risk Screen - Suicide Last Done: 05/24/24 18:03
*General Assessment Last Done: 05/24/24 18:03
*Neglect/Abuse Screening Last Done: 05/24/24 18:03
*ED- Fall Risk Assessment Last Done: 05/24/24 18:03
*ED COVID-19 Vaccine History Last Done: 05/24/24 18:03
*Nursing Disposition Last Done: 05/24/24 20:53
TO-Dfixon-Eqiqbjxrfg Assessment Last Done: 05/24/24 18:03
Discharge Date and Time
Discharge Date/Time: 05/24/24 20:54
[2024-05-24 19:00] VITALS: BP 120/54
[2024-05-24] MEDS: NSS 500 IV (19:26)
--- NOTE | 2024-05-24 19:43 | HPS.HSE ---
Family Physician
-
Family Physician: Cynthia Calix
Chief Complaint
-
Fatigue, Diarrhea
History of Present Illness
Patient is a 64y M with PMH significant for severe Crohn's disease who presents to ED complaining of profuse, watery stools and generalized weakness and fatigue. Patient states that his ostomy stopped putting out stool or gas yesterday evening
around dinner time. He developed abdominal discomfort and nausea and had 2 episodes of non-bloody emesis. Around 1-2AM he began to have output of profuse, watery stool from his ostomy / fistulas. Patient estimates > 1 liter of output in total
since that time. His gave him 1 liter of Pedialyte and several glasses of water to try and keep up with his volume losses. Despite this intake, he has had no urine output since yesterday AM.
He denies any current abdominal pain, flank pain, urge to urinate, fevers / chills, nausea, etc.
Patient states that he has had multiple similar episodes in the past attributed to severe volume contraction from GI losses.
He is currently on prednisone only for his Crohn's disease. His last dose of Stelara was about 6 weeks ago. This was discontinued due to inefficacy.
He has plans to start Skyrizi but is pending insurance approval.
Medical History
Past Medical History
Past Medical History: Reports Other
Additional Past Medical History:
Crohn's Disease with Active Fistulas
Chronic Iron Deficiency Anemia
Nephrolithiasis
Past Surgical History: Reports Other
Additional Past Surgical History:
Bowel Resection with Ileostomy / Reversal
Bowel Resection with Permanent Ileostomy
Social History
Tobacco: Non-smoker
Alcohol: None
Drug: None
Personal:
Living: With Family
Family History
Family History: Other (Uncle: Colitis)
Allergies / Home Medications
Allergies reflects when Allergies were last updated in [employer]
Home Medications with original date entered in [employer]
Allergy/Medication List:
Allergies
Allergy/AdvReac Type Severity Reaction Status Date / Time
metronidazole Allergy Unknown Verified 10/31/23 20:29
Proton Pump Inhibitors Allergy Rash Verified 10/31/23 20:29
Home Medications
Iron Infusion 1 dose IV Q6W Supplement ##0 11/01/23
ferrous sulfate 325 mg (65 mg iron) tablet 325 mg PO BID Supplement #0 tabs 11/01/23
prednisone 5 mg tablet 10 mg (2 x 5 mg) PO DAILY Anti-inflammatory #0 tabs 11/01/23
ascorbic acid (vitamin C) 500 mg tablet (Vitamin C) 500 mg PO BID 05/24/24
Review of Systems
-
History Source: Patient
A 12 point ROS was completed and negative except as noted: Yes
Constitutional: Reports Fatigue; Denies Fever or Chills
EENT: Denies Sore Throat
Respiratory: Denies Cough or Trouble Breathing
Cardiac: Denies Chest Pain or Palpitations
Abdomen/GI: Reports Diarrhea; Denies Abdominal Pain, Nausea, Vomiting, Bloody Stools or Black Stools
: Reports Other (Decreased urination.); Denies Dysuria, Frequency or Flank Pain
Musculoskeletal: Denies Joint Pain or Edema
Neurological: Denies Dizzy or Headache
Psych: Denies Depression or Anxiety
Physical Exam
Vital Signs
Vital Signs
Temp Pulse Resp BP Pulse Ox
97.8 F 93 13 120/54 100
05/24/24 18:03 05/24/24 19:00 05/24/24 19:00 05/24/24 19:00 05/24/24 19:00
Physical Exam
General: Other (Thin, chronically ill-appearing 64y M in no acute distress.)
HEENT: PERRLA and Other (Dry MM. Neck supple.)
Respiratory: Clear; No Wheezes, Rales or Rhonchi
Cardiac: S1/S2 and Regular Rhythm; No Murmur
GI: Other (Large collection dressing / ostomy device over entire anterior abdomen with multiple fistulous areas and leakage of clear/ yellow liquid with scant particles of pale stool in device.)
Genito-urinary: No costovertebral tender
Musculoskeletal: No Clubbing, No Cyanosis and No Edema
Neuro: AO x 3
Laboratory Results
-
05/24/24 17:57
05/24/24 17:57
Laboratory Results
Total Bilirubin 0.7 mg/dl (0.2-1.3) 05/24/24 17:57
AST 22 U/L (17-59) 05/24/24 17:57
ALT 24 U/L (0-50) 05/24/24 17:57
Alkaline Phosphatase 89 U/L (38-126) 05/24/24 17:57
Impression/Plan
-
A/P: Patient is a 64y M with PMH significant for severe Crohn's disease who presents to ED complaining of profuse liquid stool and general fatigue.
DELLA
Anion-Gap Metabolic Acidosis
Hyperkalemia
- Admit for further evaluation and treatment.
- Suspect secondary to profuse volume losses with ongoing GI losses / diarrhea.
- CT scan in the ED to assess for urinary obstruction / retention shows chronic changes from Crohn's but no evidence of urinary retention / obstruction.
- IVF support / replacement.
- Follow for improvement in urine output, labs / lytes, etc.
Severe Crohn's Disease
- Profuse, liquid stool noted in device - which covers his entire abdomen secondary to active, fistulous disease.
- Continue current prednisone dosing for now.
- GI evaluation for additional recommendations.
- Follow for changes / improvement in stool consistency / volume.
Chronic Iron Deficiency Anemia
- Stable. Hgb currently higher than known baseline - likely due to hemoconcentration at present.
- Follow for changes with IVFs replacement.
- Continue iron supplementation.
- Consider transfusion support if needed.
Leukocytosis
Thrombocytosis
- Likely stress response + volume contraction.
- Similar elevations seen in the past with acute illness.
- Afebrile / not acutely ill-appearing.
- Monitor off of abx for now and follow for any changes.
- Follow for changes in cell counts with IVFs.
DVT Prophylaxis: SCDs
Code Status: Full
[2024-05-24 21:00] VITALS: BP 110/60; BMI 18.4
[2024-05-24] MEDS: FEOSOL 325 MG PO (21:30)
[2024-05-24 23:00] VITALS: BP 105/59
[2024-05-25] MEDS: NSS 1000 IV ×3 (02:50→17:35)
[2024-05-25 06:21] LABS: Hematocrit 29.7 % (39.0-52.0); Hemoglobin 8.6 g/dL (13.0-18.0); Mean Corpuscular Hgb 23.3 pg (27.0-31.0); Mean Corpuscular Volume 80.5 fL (80.0-94.0); Mean Platelet Volume 9.3 fL (7.4-10.4); Platelet Count 521 10^3/uL (130-400); Red Blood Cell Count 3.69 10^6/uL (4.70-6.10); White Blood Cell Count 7.2 10^3/uL (4.8-10.8)
[2024-05-25 06:40] LABS: Blood Urea Nitrogen 35 mg/dl (9-20); Calcium 8.7 mg/dl (8.4-10.2); Carbon Dioxide 20 mmol/L (22-30); Chloride 104 mmol/L (98-107); Estimated Creatinine Clearance 17 ml/min; Glucose 87 mg/dl (70-99); Potassium 5.4 mmol/L (3.5-5.1); Sodium 134 mmol/L (135-145); eGFR 20.94
[2024-05-25 07:15] VITALS: BP 100/56; BP 105/54; BP 95/57; PULSE 101; PULSE 77; PULSE 84
[2024-05-25] MEDS: DELTASONE 10 MG PO (08:39)
[2024-05-25] MEDS: FEOSOL 325 MG PO ×2 (08:39→21:00)
--- NOTE | 2024-05-25 09:27 | WOUNDNOTE ---
WOC RN NOTE: Reviewed chart and met with patient . Reviewed WOC RN noted from past admission. Patient reports he has no ostomy needs and has all supplies with him. He follows with GI and ostomy nurse at [facility]. Will sign off. Please call WOC RN if
new ostomy needs arise during in-patient stay.
--- NOTE | 2024-05-25 09:32 | CON.GI ---
Addendum entered and electronically signed by Diana Waddell MD 05/25/24 20:56:
I saw and examined the patient.
The FRAUD PREVENTION ANALYST or PA's note was reviewed and I agree with the note.
Comment: 64-year-old male with history of fistulizing Crohn's disease for 37 years, follows up with Dr. Wilder at [facility], history of multiple abdominal surgeries, patient unclear regarding the kind of surgeries and has chronic
ileostomy presenting with increased diarrhea since yesterday. As per patient, he has episodes of what he calls bowel obstruction where he may not have any output from the ostomy for about 24 hours and then it would be followed by multiple loose
bowels in the ostomy bag. He reports that it happened a few months ago and then once last year but usually not very frequent. He empties the ostomy at least 3-4 times a day on a regular basis, does not see any blood or dark bowel movement in the
ostomy site. He denies any abdominal pain during the episode, he may have some nausea and vomiting sometimes but mostly feels bloated and uncomfortable until he starts moving his bowels. He reports failing multiple medications including
mesalamine, Remicade, Humira, Stelara(last dose 4 weeks ago ), 6 MP, and skyrizi is being considered as per pt. He has h/o chronic cutaneous fistulas. Recent CT scan without contrast showing numerous calculi in the left kidney, lobulated mass in
the presacral region, stable from March 2024 but suspicious for soft tissue neoplasm/malignancy. Irregular mass in the anterior abdominal pelvic wall containing multiple small bowel loops adjacent soft tissue density and interspersed fat density
suggestion of multiple fistulous tracts similar to exam in March 2024.
He has history of chronic anemia and elevated platelets, this admission creatinine has been significantly elevated at 3.4 but now coming down. Low sodium noted as well. Reviewing labs, stool C. difficile negative blood cultures are pending.
-History of Crohn's disease, unclear if small or large bowel, currently only maintained on oral prednisone, failed multiple Biologics and Skyrizi being considered, follows up with Dr. Wilder at [facility].
Presenting with abdominal discomfort, initially no output from ileostomy but now with significant output. Also noted of multiple fistulous tracts and soft tissue mass in the presacral area .
CT enterography March 2024 showing severe Crohn's disease involving large number of bowels in the mid abdomen with wall thickening, mucosal enhancement with segments of bowel distention and luminal narrowing.
Do not have records of previous endoscopy evaluation.
Currently he does not have any active GI symptoms. Diarrhea seems to be improving and stool studies pending but C. difficile negative.
Continue to monitor electrolytes and replete as per primary team.
He will need to follow-up with his primary GI at [place] as he has active Crohn's with intermittent obstructive symptoms. He should also discuss with them regarding soft tissue mass in the presacral area as he may need further evaluation for that.
No further GI workup here.
He follows up with him for periodic IV iron infusions, would suggest continue to do that
Original Note:
Consultation
-
Date/Time Consultation Requested: 05/24/242229
Date/Time Consultation Performed: 05/25/24929
Requesting Provider: Campbell Mackay DO
Performing Provider: EDITH Mitchell, Diana Waddell MD
Reason for Consultation: crohn's disease
Medical History
Chief Complaint / HPI
Chief Complaint: diarrhea
History of Present Illness:
Pt is a 64yo with hx JOSÉ (OP follow with Dr. Khushbu terry hematology for iron infusion), nephrolithiasis, longstanding fistulizing crohns disease for over 30 years since age 29. He has 2 surgical resection in 1989 and 1994 at [facility] and [facility]
with chronic ileostomy. He has followed termite control servicer with Dr. Wilder at [facility] with compliance with follow up. Through the years had tried mesalamine, Remicade, Humira, 6 MP, recent Stalera and now awaiting start of Skyrizi. He has been now chronic
low dose steroids currently Prednisone 10mg daily. He admits to occasional periods of feeling obstructed and on resolution with have large volume diarrhea. He began with episode and now presents with electrolyte imbalance and DELLA. Asked to see for
chronic crohns disease with severe fistulizing disease with chronic colocutanous fistulas managed by wound care. Pt states last EGD/colon several years ago did not recall finding. He completed MRE at in 03/2024 with severe crohn's disease with
large number of bowel loose with severe wall thickening, enhancement andd segment of bowel distention and narrowing with multiple fistula tracts with irregular shaped mass c/w primary tumor. enlarged pelvic nodes, renal stones with collecting system
distention, thickening and inflammation. severe bladder wall thickening. HSM. On admission CT completed with pleural scarring, numerous renal calculi stable from prior exam no obstruction, lobulated mass stable from prior study. crohns with
fistula similar to prior study. On admission also noted with electrolyte imbalance with Na 133, K 5.4, creat 3.4, glucose 125, WBC 20.3 improved after admission hbg 9.6, platelets 732.
At this time pt admits to loose stool that is improved. He denies odynophagia, dysphagia, GERD, nausea, vomiting,abdominal pain, constipation, or rectal bleeding. No NSAID use.
Past Medical History
Past Medical History: Other (crohns disease with active fistulas, chronic JOSÉ, nephrolothiasis )
Past Surgical History: Bowel Resection (x2 1989 and 1994 with chronic ileostomy)
Social History
Tobacco: Non-Smoker
Alcohol: None
Drug: None
Personal:
Living: With Family
Employment: Employed
Family History
Family History: Other (denies hx IBD)
Allergies / Home Medications
Allergy/AdvReac Type Severity Reaction Status Date / Time
metronidazole Allergy Unknown Verified 10/31/23 20:29
Proton Pump Inhibitors Allergy Rash Verified 10/31/23 20:29
�Medication �Instructions �Recorded
Iron Infusion 1 dose IV Q6W Supplement ##0 11/01/23
ferrous sulfate 325 mg (65 mg 325 mg PO BID Supplement #0 tabs 11/01/23
iron) tablet
prednisone 5 mg tablet 10 mg (2 x 5 mg) PO DAILY 11/01/23
Anti-inflammatory #0 tabs
ascorbic acid (vitamin C) 500 mg 500 mg PO BID 05/24/24
tablet (Vitamin C)
Review of Systems
-
History Source: Patient
Constitutional: Reports Weight Loss (over time )
EENT: Reports No Symptoms
Respiratory: Reports No Symptoms
Cardiac: Reports No Symptoms
Abdomen/GI: Reports Diarrhea (acute on chronic )
: Reports No Symptoms
Musculoskeletal: Reports No Symptoms
Skin: Reports Other (chronic coloncutaneous fistulas )
Neurological: Reports No Symptoms
Endocrine: Reports No Symptoms
Hematologic/Lymphatic: Reports No Symptoms
Vital Signs
Temp Pulse Resp BP Pulse Ox
97.9 F 77 16 105/54 99
05/25/24 07:15 05/25/24 07:15 05/25/24 07:15 05/25/24 07:15 05/25/24 07:15
Physical Exam
Exam
General: Well Developed, Well Nourished and Other (thin appearing)
HEENT: Normocephalic and Anicteric
Respiratory: Clear
Cardiac: Regular Rhythm
GI: Soft, Non Tender, Non Distended and Other (large lower abdominal ostomy bag covering ileostomy, and multiple coloncutaneous fistulas that are draining )
Musculoskeletal: No Clubbing and No Cyanosis
Skin: Warm and Dry
Neuro: Awake, Alert and AO x 3
Psych: Calm
Results
WBC 7.2 10^3/uL (4.8-10.8) 05/25/24 05:53
Hgb 8.6 g/dL (13.0-18.0) L 05/25/24 05:53
Hct 29.7 % (39.0-52.0) L 05/25/24 05:53
MCV 80.5 fL (80.0-94.0) 05/25/24 05:53
Plt Count 521 10^3/uL (130-400) H D 05/25/24 05:53
Absolute Neuts (auto) 19.4 10^3/uL (1.4-6.5) H 05/24/24 17:57
Sodium 134 mmol/L (135-145) L 05/25/24 05:53
Potassium 5.4 mmol/L (3.5-5.1) H 05/25/24 05:53
Chloride 104 mmol/L (98-107) 05/25/24 05:53
Carbon Dioxide 20 mmol/L (22-30) L 05/25/24 05:53
BUN 35 mg/dl (9-20) H 05/25/24 05:53
Creatinine 3.2 mg/dL (0.7-1.3) H 05/25/24 05:53
Calcium 8.7 mg/dl (8.4-10.2) 05/25/24 05:53
Total Bilirubin 0.7 mg/dl (0.2-1.3) 05/24/24 17:57
AST 22 U/L (17-59) 05/24/24 17:57
ALT 24 U/L (0-50) 05/24/24 17:57
Alkaline Phosphatase 89 U/L (38-126) 05/24/24 17:57
Diagnostic Image Results:
05/24/24 CT Abd/pel Without Iv Or Oral
Mild pleuroparenchymal scarring in the right lower hemithorax, stable. Trace amount of loculated pleural fluid in the right lower hemithorax, which also appears stable.
Numerous rounded calculi within the lower pole calyx of the left kidney and extending into the left renal pelvis, stable from previous examination of March 16, 2024. No evidence for obstructing ureteral calculus on the left.
No evidence for urinary tract calculi on the right. Bilateral renal cysts.
Lobulated mass in the presacral region, stable from most recent examination of March 16, 2024, and suspicious for a soft tissue neoplasm/malignancy.
Patient with a history of Crohn's disease. There is an irregular mass in the anterior abdominal and pelvic wall, which contains multiple small bowel loops, adjacent soft tissue density, and interspersed fat density. There is suggestion of multiple
fistulous bowel medications within this mass, with multiple tracks appearing to extend to the anterior abdominal/pelvic wall. This appears similar to examination of March 16, 2024.
03/16/24 CT Enterography
1. SEVERE CROHN'S DISEASE involving a large number of bowel loops in the central mid abdomen with severe wall thickening, mucosal enhancement, and segments of bowel distention intermixed with regions of luminal narrowing.
2. Extension of a small bowel loop into the anterior abdominal wall with air-filled branching tentacles extending through the soft tissues and possibly to the skin surface (multiple fistulous tracts are a diagnostic possibility).
3. Large amount of irregular shaped enhancing soft tissue throughout the anterior abdominal wall which has increased since 02/08/2013. Diagnostic possibilities are (1) chronic inflammatory tissue or (2) soft tissue malignancy.
4. 4.4 cm irregular shaped soft tissue mass in the extraperitoneal presacral space consistent with a primary soft tissue tumor. Diagnostic possibilities are (1) a chordoma, (2) sarcoma, or (3) plasmacytoma.
5. Mildly enlarged left anterior pelvic sidewall lymph nodes (either metastatic or malignant in etiology).
6. Large number (approximately 10) calculi in the left renal pelvis and lower pole of the left kidney with associated mild collecting system distention, urothelial thickening, and mild surrounding inflammation. Mild to moderate left renal cortical
scarring.
7. Severe urinary bladder wall thickening.
8. Mild to moderate enlargement of the prostate gland.
9. Mild hepatosplenomegaly.
Prior GI Procedures:
EGD: prior to [facility]
Colonoscopy: prior at [facility]
Assessment / Plan
-
Pt is a 64yo with hx JOSÉ, nephrolithiasis, longstanding fistulizing crohns disease for over 30 years since age 29. He has 2 surgical resection in 1989 and 1994 at [facility] with chronic ileostomy. He has followed termite control servicer with
at [facility] with compliance with follow up. Through the years had tried mesalamine, Remicade, Humira, 6 MP, recent Stalera and now awaiting start of Skyrizi. He has been now chronic low dose steroids currently Prednisone 10mg daily. He admits
to occasional periods of feeling obstructed and on resolution with have large volume diarrhea. He began with episode and now presents with electrolyte imbalance and DELLA. Asked to see for chronic crohns disease with severe fistulizing disease with
chronic colocutanous fistulas managed by wound care. Pt states last EGD/colon several years ago did not recall finding. He completed MRE at in 03/2024 with severe crohn's disease with large number of bowel loose with severe wall thickening,
enhancement andd segment of bowel distention and narrowing with multiple fistula tracts with irregular shaped mass c/w primary tumor. enlarged pelvic nodes, renal stones with collecting system distention, thickening and inflammation. severe bladder
wall thickening. HSM. On admission CT completed with pleural scarring, numerous renal calculi stable from prior exam no obstruction, lobulated mass stable from prior study. crohns with fistula similar to prior study. On admission also noted
with electrolyte imbalance with Na 133, K 5.4, creat 3.4, glucose 125, WBC 20.3 improved after admission hbg 9.6, platelets 732.
-increased diarrhea
-DELLA on admission
-hyperkalemia
-longstanding fistulizing crohn's disease
-s/p colon resection x 2 with chronic ileostomy- on chronic prednisone
-abnormal CT with lobulated mass - stable from prior MRE
-multiple chronic colocutaneous fistula
-chronic JOSÉ with periodic iron infusions
-hx nephrolithiasis
PLAN:
pt with chronic severe fistulizing crohns -- follows with Dr. Wilder at [facility] and due to start Skyrizi
currently no acute GI issue-- ostomy and fistulas draining, larger volume of diarrhea prior to admission improving, no vomiting or signs of obstruction
CT stable and similar to prior MRI in March 2024
discussed with patient he wishes to continued care at [facility]
cont to correct DELLA
cont prednisone as he has been on for year-- discussed side effects of prison use and goal to eventually wean off
wound care to review for multiple fistulas and pt asking about outpatient wound care options locally
will obtain OP records for completeness
cont diet
cont OP heme follow for periodic iron infusions
OP follow up with Dr. Wilder
-
-
Thank you for consultation and allowing me to participate in the patient's care. Please call the extension service specialist GI physician during the after hours with any questions or concerns.
--- NOTE | 2024-05-25 10:00 | W.PN.HOSP.TC ---
Addendum entered and electronically signed by Linda Phan MD 05/25/24 17:30:
urine sodium low, repeat labs with improvement
OK to switch to NS @ 150
liberalize to regular diet
patient updated on results, expect DC tomorrow morning
Original Note:
Today's Communication/Plan
-
sodium bicarb
low K diet
repeat labs 3PM - if worsening will consult renal
follow up urine studies
appreciate GI
patient anxious for discharge, discussed earliest would be tomorrow
Assessment / Plan
Assessment / Plan
A/P: Patient is a 64y M with PMH significant for severe Crohn's disease who presents to ED complaining of profuse liquid stool and general fatigue.
CT A/P
IMPRESSION: Mild pleuroparenchymal scarring in the right lower hemithorax, stable. Trace amount of loculated pleural fluid in the right lower hemithorax, which also appears stable.
Numerous rounded calculi within the lower pole calyx of the left kidney and extending into the left renal pelvis, stable from previous examination of March 16, 2024. No evidence for obstructing ureteral calculus on the left.
No evidence for urinary tract calculi on the right. Bilateral renal cysts.
Lobulated mass in the presacral region, stable from most recent examination of March 16, 2024, and suspicious for a soft tissue neoplasm/malignancy.
Patient with a history of Crohn's disease. There is an irregular mass in the anterior abdominal and pelvic wall, which contains multiple small bowel loops, adjacent soft tissue density, and interspersed fat density. There is suggestion of multiple
fistulous bowel medications within this mass, with multiple tracks appearing to extend to the anterior abdominal/pelvic wall. This appears similar to examination of March 16, 2024.
DELLA
Anion-Gap Metabolic Acidosis
Hyperkalemia
-2/2 GI volume loss
- CT scan in the ED to assess for urinary obstruction / retention shows chronic changes from Crohn's but no evidence of urinary retention / obstruction.
-change IVF to sodium bicarb
-urine studies
- repeat labs 3PM
-low K diet
Severe Crohn's Disease
- Profuse, liquid stool noted in device - which covers his entire abdomen secondary to active, fistulous disease.
- Continue current prednisone dosing for now.
- appreciate GI
- high output largely resolved
-patient follows closely with Dr. Wilder
Chronic Iron Deficiency Anemia
- drop in Hg overnight 2/2 dilution
- monitor
Leukocytosis
Thrombocytosis
- Likely stress response + volume contraction.
- resolved
- no antibiotics
DVT Prophylaxis: hep subQ
Code Status: Full
51 minutes spent on patient care
Anticipated Discharge: 24 - 48 hours
Subjective/Interval History
-
Date of Service: May 25, 2024
feeling better
less significant output
wants to go home
he is now urinating this morning
Objective Data
-
Labs:
Laboratory Results
05/25/24
05:53
WBC 7.2
Hgb 8.6 L
Hct 29.7 L
Plt Count 521 H D
Sodium 134 L
Potassium 5.4 H
Chloride 104
Carbon Dioxide 20 L
BUN 35 H
Creatinine 3.2 H
Glucose 87
Calcium 8.7
Vital Signs:
Vital Signs
Temp Pulse Resp BP Pulse Ox
97.9 F 77 16 105/54 99
05/25/24 07:15 05/25/24 07:15 05/25/24 07:15 05/25/24 07:15 05/25/24 07:15
I&O
05/24/24 05/25/24 05/26/24
06:59 06:59 06:59
Intake Total 2470 / 2470
Output Total 1300 / 1300
Balance 1170 / 1170
Review of Systems
-
History Source: Patient
All other systems: Reviewed and negative
Physical Exam
-
General: Appears Chronically Ill
HEENT: Normocephalic and Atraumatic; Negative Oxygen
Respiratory: Clear to Auscultation; Negative Wheezes or Rhonchi
Cardiac: Regular Rhythm and S1/S2; Negative Murmur
GI: Soft, Nontender, Nondistended, Normal Bowel Sounds and Ostomy (covers whole abdomen)
Musculoskeletal: No Clubbing, No Cyanosis and No Edema
Skin: Warm
Neuro: Awake
Psych: Calm
Data Reviewed
-
Diagnostic Radiology: Report Reviewed by me
Labs: Labs Reviewed by me
[2024-05-25] MEDS: HEPARIN 5000 UNITS SC ×2 (12:22→21:00)
[2024-05-25] MEDS: SODIUM BICARBONATE 1150 MEQ IV ×2 (12:23→17:13)
[2024-05-25 12:35] LABS: Urine Albumin 2+ (Neg - Trace); Urine Bilirubin Negative (Negative); Urine Character Clear (Clear); Urine Color Yellow; Urine Glucose Negative (Negative); Urine Ketone Negative (Negative); Urine Leukocyte Negative (Negative); Urine Nitrite Negative (Negative); Urine Occult Blood 4+ (Negative); Urine Specific Gravity 1.025 (<1.030); Urine Urobilinogen Negative (Neg - 1+)
[2024-05-25 12:46] LABS: Urine Squamous Cell 0-2 /LPF (Few); Urine Uric Acid Crystals Present
[2024-05-25 12:47] LABS: Urine Bacteria Few (Negative); Urine Red Blood Cell 0-2 /HPF (0-2); Urine White Cell 0-2 /HPF (0-5)
[2024-05-25 13:27] LABS: Urine Sodium < 5 mmol/L (30-90)
[2024-05-25 15:09] VITALS: BMI 18.4
[2024-05-25 15:32] VITALS: BP 105/51
[2024-05-25 17:09] LABS: Blood Urea Nitrogen 36 mg/dl (9-20); Carbon Dioxide 25 mmol/L (22-30); Chloride 98 mmol/L (98-107); Estimated Creatinine Clearance 24 ml/min; Glucose 99 mg/dl (70-99); Potassium 4.7 mmol/L (3.5-5.1); Sodium 132 mmol/L (135-145); eGFR 31.13
[2024-05-25 23:00] VITALS: BP 104/58
[2024-05-25 23:55] VITALS: BP 109/61; BP 110/57; BP 91/59; PULSE 76; PULSE 92; PULSE 96
[2024-05-26] MEDS: NSS 1000 IV ×2 (00:31→05:40)
[2024-05-26 06:27] LABS: Hematocrit 26.9 % (39.0-52.0); Hemoglobin 7.8 g/dL (13.0-18.0); Mean Corpuscular Hgb 23.2 pg (27.0-31.0); Mean Corpuscular Volume 80.1 fL (80.0-94.0); Mean Platelet Volume 9.5 fL (7.4-10.4); Platelet Count 413 10^3/uL (130-400); Red Blood Cell Count 3.36 10^6/uL (4.70-6.10); Red Cell Dist. Width 21.6 % (11.5-14.5); White Blood Cell Count 7.7 10^3/uL (4.8-10.8)
[2024-05-26 06:32] LABS: Blood Urea Nitrogen 32 mg/dl (9-20); Calcium 7.9 mg/dl (8.4-10.2); Carbon Dioxide 27 mmol/L (22-30); Chloride 104 mmol/L (98-107); Estimated Creatinine Clearance 32 ml/min; Glucose 75 mg/dl (70-99); Potassium 3.8 mmol/L (3.5-5.1); Sodium 136 mmol/L (135-145); eGFR 44.74
[2024-05-26 07:00] VITALS: BP 107/56
[2024-05-26] MEDS: DELTASONE 10 MG PO (08:49)
[2024-05-26] MEDS: FEOSOL 325 MG PO (08:49)
[2024-05-26 08:52] LABS: Iron 24 ug/dl (49-181)
[2024-05-26 09:05] LABS: Percent Saturation 10 % (20-50); Total Iron Binding Capacity 228 ug/dl (261-462)
[2024-05-26] MEDS: HEPARIN SC (09:07)
--- NOTE | 2024-05-26 09:45 | W.PN.HOSP.TC ---
Today's Communication/Plan
-
OK for DC today
Assessment / Plan
Assessment / Plan
A/P: Patient is a 64y M with PMH significant for severe Crohn's disease who presents to ED complaining of profuse liquid stool and general fatigue.
CT A/P
IMPRESSION: Mild pleuroparenchymal scarring in the right lower hemithorax, stable. Trace amount of loculated pleural fluid in the right lower hemithorax, which also appears stable.
Numerous rounded calculi within the lower pole calyx of the left kidney and extending into the left renal pelvis, stable from previous examination of March 16, 2024. No evidence for obstructing ureteral calculus on the left.
No evidence for urinary tract calculi on the right. Bilateral renal cysts.
Lobulated mass in the presacral region, stable from most recent examination of March 16, 2024, and suspicious for a soft tissue neoplasm/malignancy.
Patient with a history of Crohn's disease. There is an irregular mass in the anterior abdominal and pelvic wall, which contains multiple small bowel loops, adjacent soft tissue density, and interspersed fat density. There is suggestion of multiple
fistulous bowel medications within this mass, with multiple tracks appearing to extend to the anterior abdominal/pelvic wall. This appears similar to examination of March 16, 2024.
DELLA
Anion-Gap Metabolic Acidosis
Hyperkalemia
-2/2 GI volume loss
- CT scan in the ED to assess for urinary obstruction / retention shows chronic changes from Crohn's but no evidence of urinary retention / obstruction.
- s/p aggressive IVF with improvement in creatinine to 1.7. Will finish bag this morning. Patient is eating and drinking well with less GI losses therefore OK to HI. He will continue to hydrate at home
-will repeat labs next week
Severe Crohn's Disease
- on admission: Profuse, liquid stool noted in device - which covers his entire abdomen secondary to active, fistulous disease.
- Continue current prednisone dosing for now.
- appreciate GI
- high output largely resolved
-patient follows closely with Dr. Wilder
Chronic Iron Deficiency Anemia
- drop in Hg overnight 2/2 dilution
- monitor
-will give one dose of iV iron prior to discharge
Leukocytosis
Thrombocytosis
- Likely stress response + volume contraction.
- resolved
- no antibiotics
DVT Prophylaxis: hep subQ
Code Status: Full
51 minutes spent on patient care
Anticipated Discharge: Today
Subjective/Interval History
-
Date of Service: May 26, 2024
feeling better
urinating frequently
wants to go home
baseline hg around 8
Objective Data
-
Labs:
Laboratory Results
05/26/24 05/26/24
05:52 13:00
WBC 7.7
Hgb 7.8 L Cancelled
Hct 26.9 L
Plt Count 413 H D
Sodium 136 Cancelled
Potassium 3.8 Cancelled
Chloride 104 Cancelled
Carbon Dioxide 27 Cancelled
BUN 32 H Cancelled
Creatinine 1.7 H Cancelled
Glucose 75 Cancelled
Calcium 7.9 L Cancelled
Vital Signs:
Vital Signs
Temp Pulse Resp BP Pulse Ox
98.3 F 77 16 107/56 100
05/26/24 07:00 05/26/24 07:00 05/26/24 07:00 05/26/24 07:00 05/26/24 07:00
I&O
05/25/24 05/26/24 05/27/24
06:59 06:59 06:59
Intake Total 2470 / 2470 3400 / 4840 1440 / 1440
Output Total 1300 / 1300 750 / 750
Balance 1170 / 1170 3400 / 4840 690 / 690
Review of Systems
-
History Source: Patient
All other systems: Reviewed and negative
Physical Exam
-
General: Appears Chronically Ill
HEENT: Normocephalic and Atraumatic; Negative Oxygen
Respiratory: Clear to Auscultation; Negative Wheezes or Rhonchi
Cardiac: Regular Rhythm and S1/S2; Negative Murmur
GI: Soft, Nontender, Nondistended, Normal Bowel Sounds and Ostomy (covers whole abdomen)
Musculoskeletal: No Clubbing, No Cyanosis and No Edema
Skin: Warm
Neuro: Awake
Psych: Calm
Data Reviewed
-
Diagnostic Radiology: Report Reviewed by me
Labs: Labs Reviewed by me
--- NOTE | 2024-05-26 10:04 | W.DS.TRANS ---
DC Summary - [facility]
-
Discharge Instructions:
Discharge Diagnosis/Procedures acute kidney injury in the setting of high
volume gastrointestinal fluid losses
Diet Regular
Activity As tolerated
Driving Restrictions As prior to admission
Bathing Restrictions None
Blood Work BMP in 3-5 days
Instructions: Dehydration in adults - ED discharge instructions
Stand-Alone Forms:
Changes to Home Medications: No
Discharge Medications:
DC Medications w/original date entered in [employer]
Iron Infusion 1 dose IV Q6W Supplement ##0 11/01/23
ferrous sulfate 325 mg (65 mg iron) tablet 325 mg PO BID Supplement #0 tabs 11/01/23
prednisone 5 mg tablet 10 mg (2 x 5 mg) PO DAILY Anti-inflammatory #0 tabs 11/01/23
ascorbic acid (vitamin C) 500 mg tablet (Vitamin C) 500 mg PO BID 05/24/24
Home Medication Changes
Pending Results: No
[2024-05-26] MEDS: FERRLECIT 110 MG IV (10:35)
[2024-05-26] MEDS: NSS IV (10:35)
--- NOTE | 2024-05-26 10:53 | CM ---
Patient seen at bedside. Patient states that he lives with his family in a 2 story home. Patient PCP is Dr. Bragg and he uses the [facility] on [address] in [place].
Patient admitted yesterday, discharge today.
no needs.
[2024-05-26 11:00] VITALS: BP 101/54; BP 95/50; BP 96/52; PULSE 75; PULSE 83; PULSE 89
[2024-05-26 12:15] VITALS: BP 106/72
--- NOTE | 2024-05-26 14:09 | W.DCSUMMARY ---
Addendum entered and electronically signed by Aston Del Rio MD 06/05/24 12:49:
Severe Protein Calorie Malnutrition
Original Note:
Discharge Summary
Discharge Data
Date of Admission: 05/24/24
Date of Discharge: 05/26/24
-
Pending Results: No
Hospital Course
Discharging Physician : Dr. Linda Phan
Disposition : Home
Primary care physician : Dr. Cynthia Calix
Principal Discharge diagnosis : Acute kidney injury in the setting of high volume gastrointestinal fluid losses
Hospital Course :
Mr. Lavon Crespo is a 64 yo man with hx fistulizing Crohn's disease s/p multiple abdominal surgeries with chronic ileostomy presents to the ER with significantly increased output from the ostomy, no bleeding. He hadn't urinated in 24 hours.
Triage VS stable. Labs significant for WBC 20.3, Cr 3.4, K+ 5.4. CT A/P results below. He was admitted to medicine with GI consulting.
Overnight stool output declined to normal levels. No changes to Crohn's regimen per GI. Skyrizi being considered as outpatient.
He was given aggressive IVF, sodium bicarb with normalization of potassium and improved urination. His creatinine downtrended and is 1.7 on morning of discharge. Patient was eager to go home. He is eating and drinking normally. Given output now
declined, OK for DC with increased oral hydration over next 48 hours. He will get a repeat BMP as outpatient in 3-5 days.
Patient's Hg downtrended from 9.6 to 7.8 during hospitalization. He states his baseline is 8, and he was likely very hemoconcentrated on admission. No e/o bleeding. He was given an IV iron infusion prior to discharge.
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
Time spent on discharge was 35 minutes.
Important imaging findings :
CT A/P
IMPRESSION: Mild pleuroparenchymal scarring in the right lower hemithorax, stable. Trace amount of loculated pleural fluid in the right lower hemithorax, which also appears stable.
Numerous rounded calculi within the lower pole calyx of the left kidney and extending into the left renal pelvis, stable from previous examination of March 16, 2024. No evidence for obstructing ureteral calculus on the left.
No evidence for urinary tract calculi on the right. Bilateral renal cysts.
Lobulated mass in the presacral region, stable from most recent examination of March 16, 2024, and suspicious for a soft tissue neoplasm/malignancy.
Patient with a history of Crohn's disease. There is an irregular mass in the anterior abdominal and pelvic wall, which contains multiple small bowel loops, adjacent soft tissue density, and interspersed fat density. There is suggestion of multiple
fistulous bowel medications within this mass, with multiple tracks appearing to extend to the anterior abdominal/pelvic wall. This appears similar to examination of March 16, 2024.
Procedure findings :
Discharge Plan
-
Patient Disposition: Home (Routine Discharge)
Discharge Diagnosis/Procedures: acute kidney injury in the setting of high volume gastrointestinal fluid losses
Diet: Regular
Activity: As tolerated
Driving Restrictions: As prior to admission
Bathing Restrictions: None
Blood Work: BMP in 3-5 days
Activity Restrictions/Additional Instructions:
Please visit [email or web address] --> click on patients and caregivers tab then diet and nutrition
Instructions: Dehydration in adults - ED discharge instructions
Referrals:
Cynthia Calix MD [Family Provider] - in less than 1 week
Additional Discharge Medication Instructions: Drink extra fluids (Pedialyte, Gatorade) over the next 48 hours
Prescriptions:
Continued
prednisone 5 mg Tablet
10 mg PO DAILY Qty: 0 0RF
ferrous sulfate 325 mg (65 mg iron) Tablet
325 mg PO BID Qty: 0 0RF
Iron Infusion
1 dose IV Q6W Qty: 0 0RF
ascorbic acid (vitamin C) [Vitamin C] 500 mg Tablet
500 mg PO BID
Discharge Orders:
Discharge Patient (As Directed); Ordered 05/26/24
Ordered By: Linda Phan
Discharge Date and Time
Discharge Date/Time: 05/26/24 12:59
Print Language: SENEGALESE
--- NOTE | 2024-05-28 13:51 | PN.CDI ---
CDI
- -
CDI:
Physician Documentation Request
Admit Date: 05/24/24 20:22
Dear Doctor Sylvester,
Please review the following and provide your response in the progress notes.
Clinical Indicators:
Pt admitted with DELLA, and severe Crohn's disease.
note: ' Nutrition review due to BMI: 18.3....
CBW: 113 lbs. 12.8 oz., BMI: 18.4 (3-20) pt states that he weighed 122 lbs. 3-4 weeks ago this reflects a 7% wt loss (significant). pt meets AND/ASPEN criteria (>5% wt loss in a month and muscle loss over clavicle and subcutaneous loss orbital
and rib cage)for severe protein calorie malnutrition or chronic disease.'
If possible, please provide in your progress notes, additional specificity regarding the severity of the malnutrition:
Severe Protein Calorie Malnutrition
Other (please specify)
[place] Criteria ([employer] Hospitalist 2017)
2 or more criteria must be present for either
non severe or severe malnutrition
Note that the criteria differs related to the
presence of an acute or chronic illness
Chronic Illness
Energy Intake Non Severe: <75% for >1 month
Severe: <75% for >1 month
Weight Loss Non Severe: 5% over 1 month
7.5% over 3 months
10% over 6 months
20% over 1 year
Severe: >5% over 1 month
>7.5% over 3 months
>10% over 6 months
>20% over 1 year
Body Fat Non Severe: Mild Loss
Severe: Severe Loss
Additional criteria that can be used to Determine if Mild or Moderate Malnutrition ([employer]ck Manual 2018)
Use of terms such as suspected, likely, concern for, or probable (associated with a specific diagnosis that is being evaluated, monitored, or treated as if it exists) are acceptable and can be coded in the inpatient setting, when documented at the
time of discharge.
Thank you,
Safia Calvert RN, BSN
CDI Specialist
Center Text
Please use your independent medical judgment in providing your response.
== END 2024-05-26 12:59 | disposition home or self-care (01) | DRG 385 ==
LOC: 3 WEST ACU 20:22
PROVIDERS: Emergency Medicine; ADMITTING PHYSICIAN Hospitalist; ATTENDING PHYSICIAN Student in an Organized Health Care Education/Training Program; CONSULT PHYSICIAN Internal Medicine Gastroenterology; EMERGENCY PHYSICIAN Emergency Medicine; FAMILY PHYSICIAN Family Medicine
DX: K50.90 Crohn's disease, unspecified, without complications (principal); E43 Unspecified severe protein-calorie malnutrition; E87.20 Acidosis, unspecified; N17.9 Acute kidney failure, unspecified; Z68.1 Body mass index [BMI] 19.9 or less, adult; D50.9 Iron deficiency anemia, unspecified; D75.839 Thrombocytosis, unspecified; E86.0 Dehydration; E87.5 Hyperkalemia; N28.1 Cyst of kidney, acquired; Z87.442 Personal history of urinary calculi; Z93.3 Colostomy status
CPT/HCPCS: 74176; 80048; 80053; 81003; 81015; 82570; 82728; 83540; 83550; 84300; 85025; 85027; 87045; 87046; 87324; 87427; 87449; 93005; 96360; 96361; 99285; J2916

== ENCOUNTER → 2024-06-26 14:18 | Outpatient (REF) | payer BC, SELFPAY | LOC: RAD 14:18 | PROVIDERS: ATTENDING PHYSICIAN Physician Assistant; FAMILY PHYSICIAN Family Medicine | DX: K50.913 Crohn's disease, unspecified, with fistula (principal) | CPT/HCPCS: 71046 ==

== ENCOUNTER 2024-08-30 12:23 | Emergency (ER) | payer BC, SELFPAY ==
[2024-08-30 12:25] VITALS: BP 116/60
[2024-08-30 12:36] VITALS: BP 128/56
[2024-08-30 13:00] VITALS: BP 107/57
[2024-08-30 13:09] LABS: % Basophils 0.2 % (0-2); % Eosinophils 0.1 % (0-6); % Immature Granulocytes 0.3 % (0-0.5); % Lymphocytes 2.1 % (20.5-51.1); % Monocytes 1.7 % (1.7-9.3); % Neutrophils 95.6 % (42.2-75.2); Absolute Lymphocytes 0.3 10^3/uL (1.2-3.4); Absolute Monocytes 0.3 10^3/uL (0.1-0.6); Hematocrit 26.8 % (39.0-52.0); Hemoglobin 7.5 g/dL (13.0-18.0); Mean Corpuscular Hgb 21.8 pg (27.0-31.0); Mean Corpuscular Volume 77.9 fL (80.0-94.0); Mean Platelet Volume 9.6 fL (7.4-10.4); Nucleated Red Blood Cells % 0 % (-); Platelet Count 537 10^3/uL (130-400); Red Blood Cell Count 3.44 10^6/uL (4.70-6.10); Red Cell Dist. Width 22.3 % (11.5-14.5); White Blood Cell Count 14.6 10^3/uL (4.8-10.8)
--- NOTE | 2024-08-30 13:26 | ED.GENMED ---
History of Present Illness
General
Chief Complaint: Abnormal Lab Value
Source: patient
Exam Limitations: none
Time Seen by Provider: 08/30/24 13:09
History of Present Illness
History of Present Illness:
Patient recently changed to Jean. History of Crohn's disease/colostomy. Feels at baseline and has no acute physical complaints denying unusual weakness abdominal pain fever chills vomiting urinary symptoms etc. He had routine outpatient labs
that showed a hemoglobin below 7 and was advised to go get a unit of blood. Patient has noted no change in his output color. He receives intermittent iron transfusions.
Past History
Past History
ED Past Medical History: Other (Crohn's)
ED Past Surgical History: Bowel resection and Other (Colostomy)
Social History
Tobacco: Non-smoker
Alcohol: None
Drug: None
Personal:
Living: with family
Employment: Retired
Review of Systems
Review of Systems
All Other Systems: Not applicable
Constitutional: Denies fever or chills
Respiratory: Reports no symptoms
ABD/GI: Reports no symptoms
: Reports no symptoms
Phy Exam
Physical Exam
Physical Exam:
GENERAL: Alert and oriented in no apparent distress
EYE: Orbits normal.
NECK: Supple
CARDIAC: Regular rate and rhythm without any obvious murmurs.
LUNGS: Clear breath sounds,normal
ABDOMEN: Soft, colostomy in place. Draining brownish watery drainage. No blood no dark tarry appearance. Multiple fistulas. No surrounding cellulitis
NEUROLOGICAL: Alert and oriented , grossly non-focal
SKIN: Warm and dry, no rash or lesion, no discoloration, skin intact.
MUSCULOSKELETAL: No edema,no deformity.Good color
PSYCH: Normal and appropriate interaction.
Course
Orders/Labs/Results
Orders:
Orders
08/30/24 12:45
Type And Crossmatch [Type+Screen] Urgent
Complete Blood Count/With Diff Urgent
Comprehensive Metabolic Panel Urgent
Abnormal Lab Results
08/30/24
12:45
WBC 14.6 H 10^3/uL
(4.8-10.8)
RBC 3.44 L 10^6/uL
(4.70-6.10)
Hgb 7.5 L g/dL
(13.0-18.0)
Hct 26.8 L %
(39.0-52.0)
MCV 77.9 L fL
(80.0-94.0)
MCH 21.8 L pg
(27.0-31.0)
MCHC 28.0 L g/dL
(33.0-37.0)
RDW 22.3 H %
(11.5-14.5)
Plt Count 537 H 10^3/uL
(130-400)
Absolute Neuts (auto) 14.0 H 10^3/uL
(1.4-6.5)
Absolute Lymphs (auto) 0.3 L 10^3/uL
(1.2-3.4)
Neutrophils % 95.6 H %
(42.2-75.2)
Lymphocytes % 2.1 L %
(20.5-51.1)
Chloride 112 H mmol/L
(98-107)
BUN 22 H mg/dl
(9-20)
Glucose 107 H mg/dl
(70-99)
AST 15 L U/L
(17-59)
Albumin 3.1 L g/dl
(3.5-5.0)
08/30/24 12:45
08/30/24 12:45
Vital Signs
Initial and Last Documented VS:
Initial Vital Signs
Temp Pulse Resp BP Pulse Ox
98.4 F 94 18 116/60 100
08/30/24 12:25 08/30/24 12:25 08/30/24 12:25 08/30/24 12:25 08/30/24 12:25
Last Documented Vital Signs
Temp Pulse Resp BP Pulse Ox
98.4 F 87 14 102/53 99
08/30/24 12:25 08/30/24 15:30 08/30/24 15:30 08/30/24 15:00 08/30/24 15:30
MDM/Problems Addressed
Differential Diagnosis Includes:
Patient medically stable and in no distress. Feeling clinically at baseline. Started Skyrizi 2 weeks ago. Here for transfusion however his hemoglobin is 7.5 here which is basically baseline. Do not feel at this time he needs a transfusion. He
does have a leukocytosis although has no infectious symptoms. Will try to contact his specialist to review these labs.
*Pulse Oximetry
SaO2: 100
Oxygen Mode of Delivery: Room air
Patient hypoxic: no (99ra)
*Critical Care Note
Total Time (30-74mins, 75-104mins- exclusive of procedures): Not Applicable
Data Reviewed
Review of Other/Old Records Reveals: Labs, Records and Testing
Update Note
Update Note:
2705... No callback from patient's GI physician up. However he has remained stable. With stable hemoglobin and nonspecific leukocytosis with no infectious symptoms he will be discharged to follow-up
ED Attending Note
-
Portions of this chart may have been created with voice recognition software.� Occasional wrong word or��sound alike� substitutions may have occurred due to the inherent limitations of voice recognition software.
Discharge Plan
Departure
Patient Disposition: Home (Routine Discharge)
Date of Disposition: 08/30/24
Time of Disposition: 15:38
Patient with high blood pressure during this ER visit?: No
Discharge Problem:
Evaluation of anemia, Nonspecific leukocytosis, History of Crohn's disease
Prescriptions:
No Action
prednisone 5 mg Tablet
10 mg PO DAILY Qty: 0 0RF
ferrous sulfate 325 mg (65 mg iron) Tablet
325 mg PO BID Qty: 0 0RF
Iron Infusion
1 dose IV Q6W Qty: 0 0RF
ascorbic acid (vitamin C) [Vitamin C] 500 mg Tablet
500 mg PO BID
Referrals:
Cynthia Calix MD [Family Provider, Family Practice] - Follow up in 2-3 days
Activity Restrictions/Additional Instructions:
Get a repeat hemoglobin done in 2 days
Follow-up labs with your graphic art designer
Return with increased weakness fever abdominal pain or any other concerning infectious issues
Interventions
Interventions:
*Risk Screen - Suicide Last Done: 08/30/24 12:25
*General Assessment Last Done: 08/30/24 12:25
*Neglect/Abuse Screening Last Done: 08/30/24 12:35
*ED- Fall Risk Assessment Last Done: 08/30/24 12:25
*ED COVID-19 Vaccine History Last Done: 08/30/24 12:25
*Nursing Disposition Last Done: 08/30/24 15:50
Discharge Date and Time
Discharge Date/Time: 08/30/24 15:50
Print Language: SALVADOREAN
[2024-08-30 13:27] LABS: ALT (SGPT) < 10 U/L (0-50); AST (SGOT) 15 U/L (17-59); Albumin 3.1 g/dl (3.5-5.0); Alkaline Phosphatase 75 U/L (38-126); Blood Urea Nitrogen 22 mg/dl (9-20); Carbon Dioxide 24 mmol/L (22-30); Chloride 112 mmol/L (98-107); Glucose 107 mg/dl (70-99); Potassium 4.2 mmol/L (3.5-5.1); Sodium 140 mmol/L (135-145); Total Bilirubin 0.5 mg/dl (0.2-1.3); Total Protein 6.3 g/dl (6.3-8.2); eGFR > 60.00
[2024-08-30 13:52] LABS: Normal RBC Morphology No
[2024-08-30 13:56] LABS: Hypochromasia Slight
[2024-08-30 13:58] LABS: Macrocytosis Slight
[2024-08-30 14:00] VITALS: BP 104/52
[2024-08-30 14:06] LABS: Ovalocytes FEW; Stomatocytes FEW; Target Cells FEW
[2024-08-30 14:07] LABS: Tear Drop Red Blood Cells FEW
[2024-08-30 15:00] VITALS: BP 102/53
== END 2024-08-30 15:50 | disposition home or self-care (01) ==
LOC: EMR 12:23
PROVIDERS: Student in an Organized Health Care Education/Training Program; EMERGENCY PHYSICIAN Emergency Medicine; FAMILY PHYSICIAN Family Medicine
DX: D64.9 Anemia, unspecified (principal); D72.829 Elevated white blood cell count, unspecified; Z93.3 Colostomy status; Z87.19 Personal history of other diseases of the digestive system
CPT/HCPCS: 99283; 80053; 85025; 86850; 86900; 86901